=== PATIENT | female | born 1950 | race Caucasian/White ===

== ENCOUNTER → 2018-03-02 15:14 | Outpatient (CLI) | payer MEDICARE, SELFPAY ==
--- NOTE | 2018-03-02 15:26 | RAD_ITS ---
STUDY: X-RAY - LEFT WRIST REASON FOR EXAM: Female, 67 years old. Pain following a fall. TECHNIQUE: 4 view(s) of the wrist were obtained. COMPARISON: None. FINDINGS: Normal visualized distal radius and ulna. Normal radiocarpal articulation. Normal distal radioulnar articulation. Normal carpal bones. Normal carpal articulations. There is degenerative arthrosis of the carpometacarpal articulation of the thumb. Normal second through fifth carpometacarpal articulations. Normal visualized metacarpal bones. Soft tissue swelling. RAD/Wrist min 3 Views IMPRESSION: Soft tissue swelling. No fracture is seen. Electronically Signed: Freddy Carcamo MD at 15:54 EDT Tel [phone], Service support ,
== END ==
PROVIDERS: Visit Provider Physician Assistant Surgical
DX: S60.212A Contusion of left wrist, initial encounter (principal)
CPT/HCPCS: 73110